=== PATIENT | female | born 1955 | race Caucasian/White ===

== ENCOUNTER 2018-10-20 07:39 | Observation (INO) | payer BC ==
[2018-10-20] MEDS: CEFAZOLIN 2 GM/50 ML (PMX) 50 ML IVPB (07:00)
[~2018-10-20 07:39] MED LIST: DESFLURANE 15 MIN; LIDOCAINE 2% (SDV) 5 ML INJ; PROPOFOL 200 MG INJ; ROCURONIUM 50 MG INJ
[2018-10-20] MEDS: ACETAMINOPHEN 500 MG TAB PO (09:27)
[2018-10-20] MEDS: SOD CHLORIDE 0.9% 1,000 ML IV (09:29)
[2018-10-20] MEDS ORDERED: ALBUTEROL 0.083% (NEB) 2.5 MG/3 ML AMP HHN (10:00)
[2018-10-20] MEDS ORDERED: OXYCODONE/ACETAMINOPHEN (5/325) TAB PO ×2 (10:00)
[2018-10-20] MEDS ORDERED: morphine (1 MG/ML) 10ML SYRINGE IV ×2 (10:00)
[2018-10-20] MEDS ORDERED: MEPERIDINE 25 MG INJ IV (10:00)
[2018-10-20] MEDS ORDERED: LABETALOL HCL 20MG INJ IV (10:00)
[2018-10-20] MEDS ORDERED: DIPHENHYDRAMINE 50 MG INJ IV (10:00)
[2018-10-20] MEDS ORDERED: FENTAnyl 50 MCG/ML VIAL IV ×2 (10:00)
[2018-10-20] MEDS ORDERED: ONDANSETRON 4 MG INJ IV ×2 (10:00→13:00)
[2018-10-20] MEDS ORDERED: CEFAZOLIN 1 GM INJ (11:06)
[2018-10-20] MEDS ORDERED: MIDAZOLAM 1 MG/ML 2 ML INJ (11:06)
[2018-10-20] MEDS ORDERED: FENTAnyl 50 MCG/ML VIAL ×2 (11:06→12:05)
[2018-10-20] MEDS ORDERED: FAMOTIDINE 20 MG INJ (11:24)
[2018-10-20] MEDS ORDERED: ONDANSETRON 4 MG INJ (11:24)
[2018-10-20] MEDS ORDERED: NEOSTIGMINE 3 MG/3 ML SYRINGE (12:27)
[2018-10-20] MEDS ORDERED: GLYCOPYRROLATE 0.4 MG INJ (12:27)
[2018-10-20] MEDS: HYDROmorphONE 1 MG/5 ML IV SYRINGE IV ×3 (13:00→13:16)
[2018-10-20] MEDS: AMLODIPINE 5 MG TAB PO ×2 (14:30→15:33)
[2018-10-20] MEDS ORDERED: DEXTROSE 50% 50 ML SYRINGE IV ×2 (14:30)
[2018-10-20] MEDS ORDERED: GLUCOSE GEL 15 GRAM TUBE PO ×2 (14:30)
[2018-10-20] MEDS ORDERED: GLUCAGON 1 MG INJ IM (14:30)
[2018-10-20] MEDS ORDERED: GLUCOSE GEL 15 GRAM TUBE BUCCAL (14:30)
[2018-10-20] MEDS: D5W-0.45 NACL + KCL 20 MEQ 1,000 ML IV ×3 (14:50→22:51)
[2018-10-20 15:33] LABS: ADD MAN DIFF? NO
[2018-10-20 15:38] LABS: BASOPHILS % 0.2 % (0.0-2.0); EOSINOPHILS # 0.1 10^3/ul (0.0-0.5); EOSINOPHILS % 1.2 % (0.0-7.0); HEMATOCRIT 37.2 % (37.0-47.0); HEMOGLOBIN 12.7 g/dl (12.0-16.0); LYMPHOCYTES # 1.1 10^3/ul (0.8-2.9); LYMPHOCYTES % 12.4 % (15.0-51.0); MEAN CORPUSCULAR HEMOGLOBIN 28.7 pg (29.0-33.0); MEAN CORPUSCULAR HGB CONC 34.1 g/dl (32.0-37.0); MEAN CORPUSCULAR VOLUME 84.2 fl (82.0-101.0); MEAN PLATELET VOLUME 8.8 fl (7.4-10.4); MONOCYTE # 0.4 10^3/ul (0.3-0.9); MONOCYTES % 4.8 % (0.0-11.0); NEUTROPHIL # 6.9 10^3/ul (1.6-7.5); NEUTROPHILS % 81.3 % (39.0-77.0); PLATELET COUNT 192 10^3/UL (140-415); RED BLOOD COUNT 4.42 10^6/ul (4.20-5.40); RED CELL DISTRIBUTION WIDTH 13.1 % (11.5-14.5)
[2018-10-20 15:38] LABS: WHITE BLOOD COUNT 8.5 10^3/ul (4.8-10.8)
[2018-10-20] MEDS: morphine 2 MG INJ IV (17:07)
[2018-10-20] MEDS: INSULIN ASPART [NOVOLOG] 3 ML PEN SC ×2 (18:15→20:48)
[2018-10-20] MEDS: ACETAMINOPHEN 1000MG/100ML IV 100 ML IVPB (20:37)
[2018-10-21] MEDS: ACCU-CHEK XX (01:15)
[2018-10-21 05:27] LABS: ADD MAN DIFF? NO
[2018-10-21 05:30] LABS: WHITE BLOOD COUNT 6.7 10^3/ul (4.8-10.8)
[2018-10-21 05:30] LABS: BASOPHILS % 0.3 % (0.0-2.0); EOSINOPHILS # 0.2 10^3/ul (0.0-0.5); HEMATOCRIT 36.5 % (37.0-47.0); HEMOGLOBIN 12.2 g/dl (12.0-16.0); LYMPHOCYTES # 1.3 10^3/ul (0.8-2.9); LYMPHOCYTES % 18.8 % (15.0-51.0); MEAN CORPUSCULAR HEMOGLOBIN 28.8 pg (29.0-33.0); MEAN CORPUSCULAR HGB CONC 33.4 g/dl (32.0-37.0); MEAN CORPUSCULAR VOLUME 86.1 fl (82.0-101.0); MEAN PLATELET VOLUME 8.7 fl (7.4-10.4); MONOCYTE # 0.4 10^3/ul (0.3-0.9); MONOCYTES % 6.6 % (0.0-11.0); NEUTROPHIL # 4.8 10^3/ul (1.6-7.5); PLATELET COUNT 180 10^3/UL (140-415); RED BLOOD COUNT 4.24 10^6/ul (4.20-5.40)
[2018-10-21 06:12] LABS: ANION GAP 8 (5-13); BLOOD UREA NITROGEN 12 mg/dl (7-20); CALCIUM 9.2 mg/dl (8.4-10.2); CARBON DIOXIDE 27 mmol/L (21-31); CHLORIDE 106 mmol/L (97-110); CREATININE 0.59 mg/dl (0.44-1.00); Estimated GFR > 60 mL/min (>60); GLUCOSE 106 mg/dl (70-220); SODIUM 141 mmol/L (135-144)
[2018-10-21 06:28] LABS: PHOSPHORUS 3.3 mg/dl (2.5-4.9)
[2018-10-21 06:28] LABS: MAGNESIUM 1.8 mg/dl (1.7-2.5)
[2018-10-21 07:15] LABS: POTASSIUM 3.9 mmol/L (3.5-5.1)
[2018-10-21] MEDS: ACETAMINOPHEN 1000MG/100ML IV 100 ML IVPB (07:16)
[2018-10-21] MEDS: INSULIN ASPART [NOVOLOG] 3 ML PEN SC ×2 (07:50→12:42)
[2018-10-21] MEDS: AMLODIPINE 5 MG TAB PO (08:45)
[2018-10-21] MEDS: HYDROCODONE/APAP (5/325) TAB PO (12:09)
[2018-10-21] MEDS: DOCUSATE SODIUM 100 MG CAP PO (12:09)
== END 2018-10-21 16:30 | disposition home or self-care (01) ==
LOC: SDS 07:39 → REC 12:38 → MS1 14:27
PROVIDERS: Surgery Surgical Oncology
DX: C50.412 Malignant neoplasm of upper-outer quadrant of left female breast (principal); Z17.0 Estrogen receptor positive status [ER+]; I10 Essential (primary) hypertension; E11.9 Type 2 diabetes mellitus without complications
CPT/HCPCS: 19307; 71045; 80048; 82962; 83735; 84100; 85025; 88307; 88331; 88341; 88342; 93005; 99217